=== PATIENT | female | born 1960 | race Caucasian/White ===

== ENCOUNTER 2016-12-05 19:50 | Emergency (ER) | payer BC ==
[2016-12-05 22:47] LABS: HEMOGLOBIN 13.7 gm/dl (12.3-15.3); RED BLOOD COUNT 4.59 M/UL (4.00-5.10); WHITE BLOOD COUNT 7.9 K/UL (4.5-11.0)
[2016-12-05 23:15] LABS: BUN/CREATININE RATIO 17 (0-10)
== END 2016-12-06 02:59 | disposition home or self-care (01) ==
LOC: ER1 19:50
PROVIDERS: Family Medicine
DX: R10.819 Abdominal tenderness, unspecified site (principal); K21.9 Gastro-esophageal reflux disease without esophagitis; I10 Essential (primary) hypertension; E11.9 Type 2 diabetes mellitus without complications; F41.9 Anxiety disorder, unspecified; Z90.710 Acquired absence of both cervix and uterus; Z88.1 Allergy status to other antibiotic agents; Z88.8 Allergy status to other drugs, medicaments and biological substances; Z90.49 Acquired absence of other specified parts of digestive tract
CPT/HCPCS: 36415; 80053; 81001; 82150; 83690; 85025; 87086; 96374; 96375; 99284; J0696; J2405; J7050; Q9962

== ENCOUNTER 2021-01-03 15:54 | Emergency (ER) | payer BC ==
[~2021-01-03 15:54] MED LIST: BENICAR HCT 201 EACH PO; GLUCOPHAGE500 MG PO; INDERAL LA80 MG PO
[2021-01-03 18:23] LABS: HEMOGLOBIN 13.3 gm/dl (12.3-15.3); RED BLOOD COUNT 4.58 M/UL (4.00-5.10); WHITE BLOOD COUNT 5.8 K/UL (4.5-11.0)
[2021-01-03 19:01] LABS: BUN/CREATININE RATIO 22 (0-10)
[2021-01-03] MEDS ORDERED: K-DUR TAB 20 M20 MEQ PO (20:37)
[2021-01-03] MEDS ORDERED: ONDANSETRON ODT4 MG SL (20:37)
== END 2021-01-03 21:00 | disposition home or self-care (01) ==
LOC: ER1 15:54
PROVIDERS: Physician Assistant
DX: E86.0 Dehydration (principal); R19.7 Diarrhea, unspecified; R11.2 Nausea with vomiting, unspecified; R06.00 Dyspnea, unspecified; E87.6 Hypokalemia; E11.9 Type 2 diabetes mellitus without complications; I10 Essential (primary) hypertension; Z20.822 Contact with and (suspected) exposure to COVID-19; Z90.49 Acquired absence of other specified parts of digestive tract; Z90.710 Acquired absence of both cervix and uterus
CPT/HCPCS: 0240U; 71045; 80053; 81001; 82550; 82553; 83605; 83874; 84484; 85025; 87040; 93005; 96374; 99284; J2405; J7030

== ENCOUNTER 2021-04-11 05:02 | Emergency (ER) | payer BC ==
[~2021-04-11] VITALS: Ht 152.4 cm; Wt 86.2 kg
[~2021-04-11 05:02] MED LIST changes: +K-DUR TAB 20 M20 MEQ PO; +ONDANSETRON ODT4 MG SL
== END 2021-04-11 08:58 | disposition home or self-care (01) ==
LOC: ER1 05:02
DX: Z23 Encounter for immunization (principal); U07.1 COVID-19; E11.9 Type 2 diabetes mellitus without complications; I10 Essential (primary) hypertension; Z90.49 Acquired absence of other specified parts of digestive tract; Z90.710 Acquired absence of both cervix and uterus; Z88.1 Allergy status to other antibiotic agents
CPT/HCPCS: 71045; 87081; 87880; 99283; M0243; U0002